=== PATIENT | female | born 2005 | race Caucasian/White ===

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

== ENCOUNTER 2024-02-24 14:57 | Emergency (ER) | payer OTHER ==
[2024-02-24 15:16] VITALS: BP 95/62; PULSE 89; RESP 16; TEMP 98.2
[2024-02-24 17:35] LABS: HEMATOCRIT 41.1 % (32.4-45.2); HEMOGLOBIN 13.5 G/dL (10.7-15.3); MCH 30.3 pg (25.7-33.7); MCHC 32.8 g/dl (32.0-36.0); MEAN CELL VOLUME 92.2 fl (80-96); MEAN PLT VOLUME 7.8 fl (7.5-11.1); PLATELET COUNT 227.8 10^3/uL (134-434); RBC 4.46 10^6/uL (3.60-5.2); RDW 13.7 % (11.6-15.6); WHITE BLOOD COUNT 7.6 10^3/uL (4.0-10.8)
[2024-02-24 17:46] LABS: ALBUMIN 4.2 g/dl (3.4-5.0); ALK PHOS 75 U/L (45-117); ANION GAP 6 mmol/L (4-13); BILIRUBIN,TOTAL 0.8 mg/dl (0.2-1); CHLORIDE 107 mmol/L (98-107); CO2 22 mmol/L (21-32); CREATININE 0.5 mg/dl (0.6-1.3); GLUCOSE,RANDOM 82 mg/dl (74-106); SGOT/AST 26 U/L (15-37); SGPT/ALT 43 U/L (7-52); SODIUM 135 mmol/L (136-145); TOT PROT 7.3 g/dl (6.4-8.2)
[2024-02-24 17:55] LABS: PLATELET ESTIMATE ADEQUATE
== END 2024-02-24 19:47 | disposition home or self-care (01) ==
LOC: FER 14:57
DX: O20.9 Hemorrhage in early pregnancy, unspecified (principal); Z3A.01 Less than 8 weeks gestation of pregnancy
CPT/HCPCS: 36415; 76817-TC; 80053; 81003; 81015; 84702; 85027; 86850; 86900; 86901; 87086; 99284-25

== ENCOUNTER 2025-03-18 20:26 | Emergency (ER) | payer OTHER ==
[2025-03-18 20:36] VITALS: BP 116/82; PULSE 78; RESP 18; TEMP 98.6; BMI 21.2
[2025-03-18] MEDS: SODIUM CHLORIDE 1,000 ML IV STA (21:40)
[2025-03-18 21:45] LABS: ABSOLUTE IMMATURE GRANULOCYTES 0.01 x10^3/uL (0.0-0.031); BASOPHILS # 0.03 x10^3/uL (0.01-0.08); EOSINOPHIL % 4.7 % (0.7-5.8); EOSINOPHILS # 0.49 x10^3/uL (0.04-0.36); MCHC 32.5 g/dl (32.2-35.5); MEAN CELL VOLUME 89.9 fl (79.4-94.8); MEAN PLT VOLUME 10.0 fl (9.4-12.3); MONOCYTE # 0.74 x10^3/uL (0.24-0.86); MONOCYTE % 7.0 % (4.7-12.5); RDW 13.1 % (12.1-16.5)
[2025-03-18 21:59] LABS: ALK PHOS 157.0 U/L (45-117); CO2 26.0 mmol/L (21-32); CREATININE 0.6 mg/dl (0.6-1.3); GLUCOSE,RANDOM 102.0 mg/dl (74-106); SGOT/AST 23.0 U/L (15-37); SGPT/ALT 33.0 U/L (7-52); TOT PROT 7.3 g/dl (6.4-8.2)
[2025-03-18] MEDS ORDERED: ONDANSETRON 4 MG/2 ML VIAL ONE (22:05)
[2025-03-18] MEDS ORDERED: KETOROLAC TROMETHAMINE 30 MG/1 ML VIAL ONE (22:05)
[2025-03-18] MEDS: ONDANSETRON 4 MG/2 ML VIAL IVPUSH ONE (22:13)
[2025-03-18] MEDS: KETOROLAC TROMETHAMINE 30 MG/1 ML VIAL IVPUSH ONE (22:13)
[2025-03-18] MEDS ORDERED: AMOX TR/POT CLAV 875MG/125MG TABLETS (FP) ONE (22:40)
[2025-03-18] MEDS: AMOX TR/POT CLAV 875MG/125MG TABLETS (FP) PO ONE (22:45)
== END 2025-03-18 22:49 | disposition home or self-care (01) ==
LOC: FER 20:26
PROC: 3E0333Z Introduction of Anti-inflammatory into Peripheral Vein, Percutaneous Approach (ICD-10-PCS; principal; 2025-03-18)
PROC: 3E033GC Introduction of Other Therapeutic Substance into Peripheral Vein, Percutaneous Approach (ICD-10-PCS; 2025-03-18)
PROC: 3E0337Z Introduction of Electrolytic and Water Balance Substance into Peripheral Vein, Percutaneous Approach (ICD-10-PCS; 2025-03-18)
DX: R51.9 Headache, unspecified (principal); J01.10 Acute frontal sinusitis, unspecified; H53.149 Visual discomfort, unspecified; R11.0 Nausea
CPT/HCPCS: 36415; 70450-TC; 80053; 81025; 85025; 96361; 96374; 96375; 99285-25